=== PATIENT | male | born 1960 | race Caucasian/White ===

== ENCOUNTER 2021-09-19 15:33 | Observation (INO) ==
[2021-09-19] MEDS ORDERED: Acetaminophen 325 MG TABLET PO PRN (15:41)
[2021-09-19] MEDS ORDERED: Ondansetron 4 MG/2 ML VIAL IVP PRN (15:41)
[2021-09-19] MEDS ORDERED: Naloxone 0.4 MG/ML INJ IVP PRN (15:41)
[2021-09-19] MEDS: Ipratropium/Albuterol Neb 3 ML IH SCH ×2 (17:55→20:05)
[2021-09-19] MEDS: MethylPREDNISolone 40 MG/ML VIAL IVP SCH ×2 (18:54→23:49)
[2021-09-19] MEDS: Budesonide/Formoterol 160/4.5 1 PUFF INH IH SCH (20:05)
[2021-09-20] MEDS: Ipratropium/Albuterol Neb 3 ML IH SCH ×6 (00:33→20:09)
[2021-09-20] MEDS: MethylPREDNISolone 40 MG/ML VIAL IVP SCH ×3 (05:32→17:43)
[2021-09-20] MEDS: *HR* Enoxaparin 40 MG/0.4 ML SYRINGE SQ SCH (05:32)
[2021-09-20 06:57] LABS: Hemoglobin 13.5 g/dL (12.9-16.9); Mean Corpuscular HGB Conc 33.8 g/dL (31.6-35.5); Mean Corpuscular Hemoglobin 29.9 pg (28.0-33.3); Mean Corpuscular Volume 88.5 fL (83.0-100.0); Mean Platelet Volume 9.7 fL (9.4-12.4); Platelet Count 316 K/mcL (140-400); Red Blood Count 4.52 M/mcL (4.19-5.50); Red Cell Distribution Width 12.3 % (11.5-14.5)
[2021-09-20 07:28] LABS: BUN/Creatinine Ratio 15 (6-26); Blood Urea Nitrogen 15 mg/dL (8-23); Calcium 9.9 mg/dL (8.6-10.3); Carbon Dioxide 22 mEq/L (23-29); Chloride 100 mEq/L (98-107); Glucose 255 mg/dL (70-105); Osmolality,Calculated 288 (280-300); Potassium 3.8 mEq/L (3.5-5.1); Sodium 134 mEq/L (136-145); eGFR For African Americans > 60 (> 60); eGFR For Non-African Americans > 60 (> 60)
[2021-09-20] MEDS: Budesonide/Formoterol 160/4.5 1 PUFF INH IH SCH ×2 (07:42→20:12)
[2021-09-20] MEDS: cefTRIAXone 1,000 MG in 0.9 % Sodium Chloride 10 ML IVP SCH (08:31)
[2021-09-20] MEDS: Azithromycin 250 MG TABLET PO SCH (08:31)
[2021-09-20 12:43] LABS: Adenovirus Not Detected (Not Detect); Coronavirus 229E Not Detected (Not Detect); Coronavirus HKU1 Not Detected (Not Detect); Coronavirus NL63 Not Detected (Not Detect); Coronavirus OC43 Not Detected (Not Detect); Human Metapneumovirus Not Detected (Not Detect); SARS-CoV-2 Not Detected (Not Detect)
[2021-09-20 12:44] LABS: Bordetella Pertussis Not Detected (Not Detect); Chlamydophila pneumoniae Not Detected (Not Detect); Human Rhinovirus/Enterovirus DETECTED (Not Detect); Influenza A Subtype 2009 H1 Not Detected (Not Detect); Influenza B Not Detected (Not Detect); Mycoplasma pneumoniae Not Detected (Not Detect); Parainfluenza Virus 1 Not Detected (Not Detect); Parainfluenza Virus 2 Not Detected (Not Detect); Parainfluenza Virus 3 Not Detected (Not Detect); Parainfluenza Virus 4 Not Detected (Not Detect); Respiratory Syncytial Virus Not Detected (Not Detect)
[2021-09-20] MEDS: Nicotine 14 MG PATCH.TD24 TD SCH (12:52)
[2021-09-20] MEDS: Menthol 1 EACH LOZENGE PO PRN ×2 (17:58→20:36)
[2021-09-21] MEDS: Ipratropium/Albuterol Neb 3 ML IH SCH ×3 (00:01→08:23)
[2021-09-21] MEDS: MethylPREDNISolone 40 MG/ML VIAL IVP SCH (04:41)
[2021-09-21] MEDS: *HR* Enoxaparin 40 MG/0.4 ML SYRINGE SQ SCH (04:42)
[2021-09-21 07:27] VITALS: BP 112/73; PULSE 72; TEMP 97.8
[2021-09-21] MEDS: Budesonide/Formoterol 160/4.5 1 PUFF INH IH SCH (08:24)
[2021-09-21 08:25] VITALS: RESP 18; O2SAT 93
[2021-09-21] MEDS ORDERED: CefTRIAXone 1,000 MG VIAL ONE (08:35)
[2021-09-21] MEDS: cefTRIAXone 1,000 MG in 0.9 % Sodium Chloride 10 ML IVP SCH (08:41)
[2021-09-21] MEDS: Nicotine 14 MG PATCH.TD24 TD SCH (08:41)
[2021-09-21] MEDS: Azithromycin 250 MG TABLET PO SCH (08:41)
[2021-09-21] MEDS: Menthol 1 EACH LOZENGE PO PRN (08:42)
== END 2021-09-21 10:06 | disposition home or self-care (01) ==
LOC: INPPIK
PROVIDERS: ADMIT Family Medicine; ATTEND Family Medicine